=== PATIENT | female | born 1940 | race Two or more races ===

== ENCOUNTER → 2018-05-13 | Outpatient (CLI) | payer OTHER ==
[2018-05-13 12:31] LABS: Basophils # (auto) 0 uL; Basophils % (auto) 0.6 % (0.0-2.0); Eosinophils # (auto) 0.2 uL; Eosinophils % (auto) 2.9 % (0.0-7.0); Hematocrit 40.5 % (36.0-46.0); Hemoglobin 13.6 g/dL (12.2-16.2); Lymphocytes # (auto) 2.2 uL; Mean Corpuscular Hemoglobin 31.6 pg (28.0-32.0); Mean Corpuscular Hgb Conc. 33.5 g/dL (32.0-36.0); Mean Corpuscular Volume 94.4 fL (80.0-100.0); Monocytes # (auto) 0.4 uL; Neutrophils # (auto) 3.1 uL; Neutrophils % (auto) 52.5 % (37.0-80.0); Nucleated Red Blood Cells % 0.1 %; Platelet Count (auto) 239 10^3/uL (140-450); Red Blood Cells 4.29 10^6/uL (4.0-5.20); Red Cell Distribution Width 14.1 % (11.8-14.3); White Blood Cell 5.8 10^3/uL (4.4-10.8)
[2018-05-13 13:07] LABS: Alanine Aminotransferase 22 U/L (13-56); Alkaline Phosphatase 87 U/L (45-117); Aspartate Aminotransferase 19 U/L (15-37); BUN/Creatinine Ratio 12.2; Bilirubin, Total 0.7 mg/dL (0.2-1.0); Blood Urea Nitrogen 12 mg/dL (7-18); Carbon Dioxide 26 mmol/L (21-32); Cholesterol 187 mg/dL (< 200); GFR African American 71 mL/min; GFR Non-African American 59 mL/min; Glucose 88 mg/dL (74-106); HDL Cholesterol 24 mg/dL (40-59); Total Protein 8.4 g/dL (6.4-8.2); Triglycerides 518 mg/dL (< 150)
[2018-05-13 13:37] LABS: Anion Gap 6 (5-15); Chloride 105 mmol/L (98-107); Potassium 4.2 mmol/L (3.5-5.1); Sodium 137 mmol/L (136-145)
== END | disposition home or self-care (01) ==
LOC: LAB 11:33
PROVIDERS: ATTEND Internal Medicine
DX: I10 Essential (primary) hypertension (principal)
CPT/HCPCS: 36415; 80053; 80061; 84439; 84443; 85025; 85652

== ENCOUNTER → 2018-12-10 | Outpatient (CLI) | payer OTHER ==
[2018-12-10 12:32] LABS: Urine Bacteria MANY /hpf (None Seen); Urine Blood Negative /uL (Negative); Urine Specific Gravity 1.012 (1.001-1.035); Urine WBC 16 /hpf (0 - 5)
[2018-12-10 13:50] LABS: Cholesterol 145 mg/dL (< 200); HDL Cholesterol 31 mg/dL (40-59); LDL Cholesterol 96 mg/dL (< 100); Triglycerides 256 mg/dL (< 150)
[2018-12-10 13:55] LABS: Free T4 (Free Thyroxine) 0.75 ng/dL (0.89-1.76)
== END | disposition home or self-care (01) ==
LOC: LAB 11:40
PROVIDERS: ATTEND Internal Medicine
DX: E03.9 Hypothyroidism, unspecified (principal); I10 Essential (primary) hypertension
CPT/HCPCS: 36415; 80061; 81001; 82043; 82607; 84439

== ENCOUNTER 2019-06-26 11:54 | Inpatient (IN) | payer OTHER ==
[~2019-06-26] VITALS: Ht 160 cm; Wt 87.3 kg
[2019-06-26 13:38] LABS: Basophils # (auto) 0 10 ^3/uL (0-0.2); Basophils % (auto) 0.5 % (0.0-2.0); Eosinophils # (auto) 0.1 10 ^3/uL (0-0.8); Eosinophils % (auto) 1.8 % (0.0-7.0); Hematocrit 40.5 % (36.0-46.0); Hemoglobin 13.6 g/dL (12.2-16.2); Lymphocytes # (auto) 1.9 10 ^3/uL (0.4-5.4); Lymphocytes % (auto) 29.4 % (10.0-50.0); Mean Corpuscular Hgb Conc. 33.6 g/dL (32.0-36.0); Mean Corpuscular Volume 95.2 fL (80.0-100.0); Monocytes # (auto) 0.5 10 ^3/uL (0-1.3); Monocytes % (auto) 7.1 % (0.0-12.0); Neutrophils % (auto) 61.2 % (37.0-80.0); Nucleated Red Blood Cells % 0.1 %; Platelet Count (auto) 232 10^3/uL (140-450); Red Blood Cells 4.25 10^6/uL (4.0-5.20); Red Cell Distribution Width 14.3 % (11.8-14.3); White Blood Cell 6.6 10^3/uL (4.4-10.8)
[2019-06-26 13:56] LABS: Anion Gap 6 (5-15); Blood Urea Nitrogen 20 mg/dL (7-18); Calcium 9.4 mg/dL (8.5-10.1); Carbon Dioxide 26 mmol/L (21-32); Chloride 104 mmol/L (98-107); Potassium 3.9 mmol/L (3.5-5.1); Sodium 136 mmol/L (136-145)
[2019-06-26 13:59] LABS: Alanine Aminotransferase 29 U/L (13-56); Aspartate Aminotransferase 22 U/L (15-37); BUN/Creatinine Ratio 16.5; GFR African American 55 mL/min; GFR Non-African American 46 mL/min; Glucose 98 mg/dL (74-106)
[2019-06-26 14:04] LABS: Alkaline Phosphatase 91 U/L (45-117); Bilirubin, Total 0.9 mg/dL (0.2-1.0); Total Protein 8.4 g/dL (6.4-8.2)
[2019-06-26] MEDS ORDERED: MORPHINE SULF INJ 2 MG/ML SYRINGE 1ML IV PRN ×2 (14:15→14:30)
[2019-06-26] MEDS ORDERED: FUROSEMIDE 100 MG/10ML VIAL IV ONE (14:15)
[2019-06-26] MEDS ORDERED: NITROGLYCERIN 0.4 MG SL TAB SL PRN ×2 (14:15→14:30)
[2019-06-26] MEDS ORDERED: NIFEdipine ER 30 MG TAB PO ONE (14:15)
[2019-06-26] MEDS ORDERED: ONDANSETRON HCL 4 MG/2 ML VIAL IV PRN (14:30)
[2019-06-26] MEDS ORDERED: HYDROcodone-ACET 5/325MG TAB PO PRN (14:30)
[2019-06-26] MEDS ORDERED: DEXTROSE (50%) 50ML SYRG IV PRN (14:30)
[2019-06-26] MEDS ORDERED: LORazepam 0.5 MG TAB PO PRN (14:30)
[2019-06-26] MEDS ORDERED: LEVOTHYROXINE SODIUM 25 MCG TAB PO ONE (15:00)
[2019-06-26 15:06] VITALS: BP 153/96
--- NOTE | 2019-06-26 15:06 | NUR ---
Telemetry admit from ER [facility] TAN admitted to Telemetry unit after SBAR received. Patient oriented to TERRANCE vanegas RN, unit, [id number] and unit policies regarding patient care and visiting hours. Patient now on continuous telemetry monitoring, tele box # [id number] and telemetry reading on arrival to unit is SR56. Patient weighed by bedscale and encouraged to call if they need something. All questions and concerns addressed, patient verbalized understanding.
[2019-06-26] MEDS: SOD CHL 0.45% 1,000 ML IV SCH (15:44)
[2019-06-26] MEDS: ACCU-CHEK COMFORT CURVE STRIP VI SCH ×2 (17:23→22:39)
[2019-06-26 17:29] VITALS: BP 153/93
[2019-06-26] MEDS: InsuLIN REG 1unit/0.01ml Soln (100units/ml) SC SCH (17:29)
[2019-06-26] MEDS: FUROSEMIDE 20 MG/2 ML VIAL IV SCH (18:05)
--- NOTE | 2019-06-26 19:16 | NUR ---
CLOSING SHIFT NOTE Care endorsed to communications superintendent RN.
[2019-06-26] MEDS ORDERED: LORazepam 2MG/ML-1ML VIAL IV PRN (20:45)
[2019-06-26 22:00] VITALS: BP 116/41
[2019-06-26] MEDS ORDERED: InsuLIN REG 1unit/0.01ml Soln (100units/ml) SC SCH (22:00)
[2019-06-26] MEDS: ATORVASTATIN 20 MG TAB PO SCH (22:38)
[2019-06-26] MEDS: METOPROLOL TARTRATE 25 MG TAB PO SCH (22:38)
[2019-06-27] MEDS: SOD CHL 0.45% 1,000 ML IV SCH (03:49)
[2019-06-27 05:00] VITALS: BP 114/48
[2019-06-27] MEDS: LEVOTHYROXINE SODIUM 25 MCG TAB PO SCH (06:17)
[2019-06-27] MEDS: FUROSEMIDE 20 MG/2 ML VIAL IV SCH (06:17)
[2019-06-27] MEDS: InsuLIN REG 1unit/0.01ml Soln (100units/ml) SC SCH ×2 (07:00→11:30)
[2019-06-27] MEDS: ACCU-CHEK COMFORT CURVE STRIP VI SCH ×2 (07:03→11:33)
[2019-06-27 07:43] LABS: Basophils # (auto) 0 10 ^3/uL (0-0.2); Basophils % (auto) 0.5 % (0.0-2.0); Eosinophils # (auto) 0.1 10 ^3/uL (0-0.8); Eosinophils % (auto) 1.7 % (0.0-7.0); Hematocrit 39.7 % (36.0-46.0); Hemoglobin 13.4 g/dL (12.2-16.2); Lymphocytes # (auto) 1.9 10 ^3/uL (0.4-5.4); Lymphocytes % (auto) 29.3 % (10.0-50.0); Mean Corpuscular Hemoglobin 32.1 pg (28.0-32.0); Mean Corpuscular Hgb Conc. 33.7 g/dL (32.0-36.0); Mean Corpuscular Volume 95.1 fL (80.0-100.0); Monocytes # (auto) 0.5 10 ^3/uL (0-1.3); Monocytes % (auto) 6.8 % (0.0-12.0); Neutrophils # (auto) 4.1 10 ^3/uL (1.6-8.6); Neutrophils % (auto) 61.7 % (37.0-80.0); Nucleated Red Blood Cells % 0.1 %; Platelet Count (auto) 237 10^3/uL (140-450); Red Blood Cells 4.18 10^6/uL (4.0-5.20); White Blood Cell 6.6 10^3/uL (4.4-10.8)
[2019-06-27 07:52] LABS: INR 1.13 (0.9-1.15)
[2019-06-27 08:06] LABS: Albumin 3.7 g/dL (3.4-5.0); Anion Gap 9 (5-15); Blood Urea Nitrogen 31 mg/dL (7-18); Calcium 8.4 mg/dL (8.5-10.1); Carbon Dioxide 24 mmol/L (21-32); Chloride 106 mmol/L (98-107); Glucose 124 mg/dL (74-106); Magnesium 2.6 mg/dL (1.6-2.6); Potassium 3.7 mmol/L (3.5-5.1); Sodium 139 mmol/L (136-145)
[2019-06-27 08:11] LABS: Alanine Aminotransferase 26 U/L (13-56); Alkaline Phosphatase 84 U/L (45-117); Aspartate Aminotransferase 18 U/L (15-37); BUN/Creatinine Ratio 20.5; Bilirubin, Total 0.8 mg/dL (0.2-1.0); Cholesterol 197 mg/dL (< 200); Creatine Kinase IFCC 54 U/L (26-192); GFR African American 43 mL/min; GFR Non-African American 36 mL/min; HDL Cholesterol 32 mg/dL (40-59); LDL Cholesterol 119 mg/dL (< 100); Lactate Dehydrogenase 142 U/L (84-246); Phosphorus 4.5 mg/dL (2.5-4.90); Total Protein 8.2 g/dL (6.4-8.2); Triglycerides 228 mg/dL (< 150); Uric Acid 6.5 mg/dL (2.6-6.0)
[2019-06-27 08:16] LABS: Ferritin 140.9 ng/mL (10-322)
[2019-06-27 09:00] VITALS: BP 110/56
[2019-06-27] MEDS ORDERED: ASPirin 81 mg TAB PO SCH (10:00)
[2019-06-27] MEDS ORDERED: ENOXAPARIN SOD 40 MG/0.4 ML SYRINGE SC SCH (10:00)
[2019-06-27] MEDS ORDERED: LISINOPRIL 5 MG TAB PO SCH (10:00)
[2019-06-27] MEDS: METOPROLOL TARTRATE 25 MG TAB PO SCH (10:53)
[2019-06-27] MEDS: DOCUSATE SOD 100 MG CAP PO SCH (10:53)
[2019-06-27] MEDS: LOSARTAN POTASSIUM 50 MG TAB PO SCH (10:53)
[2019-06-27 13:00] VITALS: BP 123/54
--- NOTE | 2019-06-27 14:20 | NUR ---
MRI - BRAIN PATIENT WAS TAKEN DOWN FOR BRAIN MRI.
[2019-06-27 17:50] VITALS: BP 116/50
--- NOTE | 2019-06-27 19:30 | NUR ---
RECEIVED REPORT FROM DAY RN POC REVIEWED
[2019-06-27 22:00] VITALS: BP 132/55
[2019-06-27] MEDS: ATORVASTATIN 20 MG TAB PO SCH (22:33)
--- NOTE | 2019-06-27 22:36 | NUR ---
AMBULATE WITH ASSIST TO BATHROOM, PT IS UNSTEADY ON FEET
[2019-06-28 05:00] VITALS: BP 112/53
[2019-06-28] MEDS: LEVOTHYROXINE SODIUM 25 MCG TAB PO SCH (06:16)
--- NOTE | 2019-06-28 06:48 | NUR ---
REPORT GIVEN TO AM NURSE POC REVIEWED
[2019-06-28 08:08] LABS: RPR Non Reactive (Non Reactive)
[2019-06-28 09:00] VITALS: BP 119/48
[2019-06-28] MEDS: DOCUSATE SOD 100 MG CAP PO SCH (09:33)
[2019-06-28] MEDS: LOSARTAN POTASSIUM 50 MG TAB PO SCH (09:34)
--- NOTE | 2019-06-28 10:53 | NUR ---
D/C - Family notified Called and notified family (Duncan, son) of order to discharge patient and informed him it would take a couple of hours for the paperwork and everything to be completed. He said he lives about 35 minutes from [place] and it would take time for him to get here to pick her up. He will notify this nurse when he is coming to get her. Patient was informed of this as well, with help from a nurse to translate as patient is Tajik speaking only.
--- NOTE | 2019-06-28 11:35 | NUR ---
CONTACTED FAMILY CALLED SAMMY AND LET HIM KNOW THE PAPERWORK IS DONE. HE STATED HE WAS ON HIS WAY AND WAS ABOUT 15 MINUTES AWAY. HE WILL CALL WHEN HE GETS TO THE FRONT OF THE BUILDING.
--- NOTE | 2019-06-28 12:25 | NUR ---
Discharge Removed IV intact with no problems. Removed ID band. Removed telemetry and returned to ICU per hospital protocol. Took patient down in wheelchair with all personal belongings to private vehicle. Went over discharge paperwork with sonDuncan. No new prescriptions.
[2019-06-29 11:00] LABS: Folate (Folic Acid) 8.83 ng/mL (5.38-24)
== END 2019-06-28 12:22 | disposition home or self-care (01) | DRG 78 ==
LOC: ER 11:54 → TELE 11:55 → TELE-CENTR 15:22
PROVIDERS: ADMIT Hospitalist; ATTEND Hospitalist
DX: I67.4 Hypertensive encephalopathy (principal); I16.1 Hypertensive emergency; G45.9 Transient cerebral ischemic attack, unspecified; N17.9 Acute kidney failure, unspecified; E03.9 Hypothyroidism, unspecified; E66.9 Obesity, unspecified; Z68.34 Body mass index [BMI] 34.0-34.9, adult; F17.200 Nicotine dependence, unspecified, uncomplicated; I13.10 Hypertensive heart and chronic kidney disease without heart failure, with stage 1 through stage 4 chronic kidney disease, or unspecified chronic kidney disease; I67.2 Cerebral atherosclerosis; N18.9 Chronic kidney disease, unspecified; Z79.82 Long term (current) use of aspirin; Z82.49 Family history of ischemic heart disease and other diseases of the circulatory system; Z79.899 Other long term (current) drug therapy
CPT/HCPCS: 36415; 70450; 70551; 71045; 80053; 80061; 82533; 82550; 82607; 82728; 82746; 82962; 83036; 83615; 83735; 83930; 83935; 83970; 84100; 84443; 84484; 84550; 85025; 85045; 85610; 85652; 85730; 86592; 93005; G0378; J1815

== ENCOUNTER → 2019-11-12 | Outpatient (CLI) | payer OTHER | END | disposition home or self-care (01) | LOC: XYW 09:29 | PROVIDERS: ATTEND Internal Medicine | DX: I08.1 Rheumatic disorders of both mitral and tricuspid valves (principal); R42 Dizziness and giddiness | CPT/HCPCS: 93306 ==

== ENCOUNTER → 2020-04-18 | Outpatient (CLI) | payer OTHER ==
[2020-04-18 11:10] LABS: Basophils # (auto) 0 10 ^3/uL (0-0.2); Basophils % (auto) 0.7 % (0.0-2.0); Eosinophils # (auto) 0.2 10 ^3/uL (0-0.8); Eosinophils % (auto) 3.5 % (0.0-7.0); Hematocrit 38.5 % (36.0-46.0); Hemoglobin 13.1 g/dL (12.2-16.2); Lymphocytes # (auto) 2.1 10 ^3/uL (0.4-5.4); Lymphocytes % (auto) 36.8 % (10.0-50.0); Mean Corpuscular Hemoglobin 32.3 pg (28.0-32.0); Mean Corpuscular Hgb Conc. 33.9 g/dL (32.0-36.0); Mean Corpuscular Volume 95.4 fL (80.0-100.0); Monocytes # (auto) 0.3 10 ^3/uL (0-1.3); Monocytes % (auto) 5.6 % (0.0-12.0); Neutrophils # (auto) 3.1 10 ^3/uL (1.6-8.6); Neutrophils % (auto) 53.4 % (37.0-80.0); Platelet Count (auto) 256 10^3/uL (140-450); Red Blood Cells 4.04 10^6/uL (4.0-5.20); Red Cell Distribution Width 13.5 % (11.8-14.3); White Blood Cell 5.8 10^3/uL (4.4-10.8)
[2020-04-18 11:16] LABS: Urine Bacteria FEW /hpf (None Seen); Urine Blood Negative /uL (Negative); Urine WBC 4 /hpf (0 - 5)
[2020-04-18 11:50] LABS: Albumin 3.9 g/dL (3.4-5.0); Calcium 8.8 mg/dL (8.5-10.1); Potassium 4.3 mmol/L (3.5-5.1)
[2020-04-18 11:53] LABS: BUN/Creatinine Ratio 11.7; Bilirubin, Total 0.6 mg/dL (0.2-1.0); Total Protein 8.5 g/dL (6.4-8.2)
[2020-04-18 14:01] LABS: Free T4 (Free Thyroxine) 0.69 ng/dL (0.89-1.76)
== END | disposition home or self-care (01) ==
LOC: LAB 10:49
PROVIDERS: ATTEND Internal Medicine
DX: I10 Essential (primary) hypertension (principal); E03.9 Hypothyroidism, unspecified
CPT/HCPCS: 36415; 80053; 81001; 82607; 84439; 84443; 85025; 85652

== ENCOUNTER → 2021-05-17 | Outpatient (CLI) | payer OTHER ==
[2021-05-17 09:42] LABS: Urine Bacteria MANY /hpf (None Seen); Urine Blood Negative /uL (Negative); Urine Mucus FEW (None Seen); Urine Specific Gravity 1.018 (1.001-1.035); Urine WBC 8 /hpf (0 - 5)
[2021-05-17 09:43] LABS: Basophils # (auto) 0 10 ^3/uL (0-0.2); Basophils % (auto) 0.6 % (0.0-2.0); Eosinophils # (auto) 0.2 10 ^3/uL (0-0.8); Hematocrit 36.5 % (36.0-46.0); Hemoglobin 12.3 g/dL (12.2-16.2); Lymphocytes # (auto) 2.2 10 ^3/uL (0.4-5.4); Lymphocytes % (auto) 38.6 % (10.0-50.0); Mean Corpuscular Hemoglobin 32.2 pg (28.0-32.0); Mean Corpuscular Hgb Conc. 33.8 g/dL (32.0-36.0); Mean Corpuscular Volume 95.4 fL (80.0-100.0); Monocytes # (auto) 0.4 10 ^3/uL (0-1.3); Neutrophils # (auto) 2.8 10 ^3/uL (1.6-8.6); Neutrophils % (auto) 49.8 % (37.0-80.0); Nucleated Red Blood Cells % 0.2 %; Red Blood Cells 3.83 10^6/uL (4.0-5.20); Red Cell Distribution Width 13.8 % (11.8-14.3); White Blood Cell 5.6 10^3/uL (4.4-10.8)
[2021-05-17 11:26] LABS: Calcium 9.3 mg/dL (8.5-10.1); Potassium 4.3 mmol/L (3.5-5.1)
[2021-05-17 11:36] LABS: BUN/Creatinine Ratio 19.4; Bilirubin, Total 0.6 mg/dL (0.2-1.0); Total Protein 8.3 g/dL (6.4-8.2); Uric Acid 4.3 mg/dL (2.6-6.0)
== END | disposition home or self-care (01) ==
LOC: LAB 09:11
PROVIDERS: ATTEND Internal Medicine
DX: E03.9 Hypothyroidism, unspecified (principal); I10 Essential (primary) hypertension
CPT/HCPCS: 36415; 80053; 80061; 81001; 84439; 84443; 84550; 85025; 85652

== ENCOUNTER → 2021-12-19 | Outpatient (CLI) | payer OTHER ==
[2021-12-19 11:10] LABS: Basophils # (auto) 0 10 ^3/uL (0-0.2); Basophils % (auto) 0.9 % (0.0-2.0); Eosinophils # (auto) 0.2 10 ^3/uL (0-0.8); Eosinophils % (auto) 4.6 % (0.0-7.0); Hematocrit 36.2 % (36.0-46.0); Hemoglobin 12.2 g/dL (12.2-16.2); Lymphocytes # (auto) 1.5 10 ^3/uL (0.4-5.4); Lymphocytes % (auto) 28.4 % (10.0-50.0); Mean Corpuscular Hemoglobin 32.1 pg (28.0-32.0); Mean Corpuscular Hgb Conc. 33.8 g/dL (32.0-36.0); Mean Corpuscular Volume 95.1 fL (80.0-100.0); Monocytes # (auto) 0.3 10 ^3/uL (0-1.3); Monocytes % (auto) 5.5 % (0.0-12.0); Neutrophils # (auto) 3.2 10 ^3/uL (1.6-8.6); Neutrophils % (auto) 60.6 % (37.0-80.0); Red Cell Distribution Width 13.5 % (11.8-14.3); White Blood Cell 5.3 10^3/uL (4.4-10.8)
[2021-12-19 11:23] LABS: Free T4 (Free Thyroxine) 0.95 ng/dL (0.89-1.76)
[2021-12-19 11:31] LABS: Albumin 3.5 g/dL (3.4-5.0); Calcium 8.5 mg/dL (8.5-10.1); Potassium 4.5 mmol/L (3.5-5.1)
[2021-12-19 11:35] LABS: BUN/Creatinine Ratio 15.4; Bilirubin, Total 0.5 mg/dL (0.2-1.0); Total Protein 7.3 g/dL (6.4-8.2); Uric Acid 4.1 mg/dL (2.6-6.0)
== END | disposition home or self-care (01) ==
LOC: LAB 10:14
PROVIDERS: ATTEND Internal Medicine
DX: I10 Essential (primary) hypertension (principal); M17.11 Unilateral primary osteoarthritis, right knee
CPT/HCPCS: 36415; 80053; 82607; 83036; 84439; 84443; 84550; 85025

== ENCOUNTER → 2022-07-17 | Outpatient (CLI) | payer OTHER ==
[2022-07-17 11:26] LABS: Basophils # (auto) 0 10 ^3/uL (0-0.2); Basophils % (auto) 0.6 % (0.0-2.0); Eosinophils # (auto) 0.2 10 ^3/uL (0-0.8); Eosinophils % (auto) 3.8 % (0.0-7.0); Hematocrit 38.9 % (36.0-46.0); Hemoglobin 13.1 g/dL (12.2-16.2); Lymphocytes # (auto) 1.9 10 ^3/uL (0.4-5.4); Lymphocytes % (auto) 34.6 % (10.0-50.0); Mean Corpuscular Hemoglobin 31.6 pg (28.0-32.0); Mean Corpuscular Hgb Conc. 33.6 g/dL (32.0-36.0); Monocytes # (auto) 0.3 10 ^3/uL (0-1.3); Monocytes % (auto) 6.1 % (0.0-12.0); Neutrophils % (auto) 54.9 % (37.0-80.0); Nucleated Red Blood Cells % 0.1 %; Red Blood Cells 4.14 10^6/uL (4.0-5.20); White Blood Cell 5.5 10^3/uL (4.4-10.8)
[2022-07-17 11:52] LABS: Urine Bacteria FEW /hpf (None Seen); Urine Blood Negative /uL (Negative); Urine Mucus FEW (None Seen); Urine Specific Gravity 1.019 (1.001-1.035); Urine WBC 106 /hpf (0 - 5)
[2022-07-17 11:57] LABS: Calcium 9.5 mg/dL (8.5-10.1)
[2022-07-17 12:02] LABS: BUN/Creatinine Ratio 18.9 (10.0-20.0); Bilirubin, Total 0.7 mg/dL (0.2-1.0); Total Protein 8.5 g/dL (6.4-8.2)
[2022-07-17 12:33] LABS: Potassium 4.7 mmol/L (3.5-5.1)
== END | disposition home or self-care (01) ==
LOC: LAB 11:05
PROVIDERS: ATTEND Internal Medicine
DX: I12.9 Hypertensive chronic kidney disease with stage 1 through stage 4 chronic kidney disease, or unspecified chronic kidney disease (principal); N18.30 Chronic kidney disease, stage 3 unspecified; E03.9 Hypothyroidism, unspecified
CPT/HCPCS: 36415; 80053; 80061; 81001; 84439; 84443; 85025; 85652